=== PATIENT | male | born 1955 | race Caucasian/White ===

== ENCOUNTER → 2017-08-31 | Outpatient (CLI) | payer OTHER ==
[~2017-08-31] MED LIST: ACIPHEX20 MG PO; ASPIRIN81 M1 PO; CRESTOR10 MG PO; CRESTOR40 MG PO; CYCLOBENZAPRINE10 MG PO; PERCOCET 5/31 TABLET PO; PROTONIX40 MG PO; ROBAXIN750 MG PO; Robaxin PO; VIAGRA100 MG PO
== END | disposition home or self-care (01) ==
LOC: CDC 14:33
DX: Z01.810 Encounter for preprocedural cardiovascular examination (principal); Z12.11 Encounter for screening for malignant neoplasm of colon
CPT/HCPCS: 93000

== ENCOUNTER → 2017-09-15 | Outpatient (CLI) | payer OTHER ==
[~2017-09-15] VITALS: Ht 180.3 cm; Wt 120.2 kg
[~2017-09-15] MED LIST changes: +ATORVASTATIN CA20 MG PO; +NAPROSYN500 MG PO; +OXYCODONE HCL15 MG PO; +VITAMIN D2000 UNIT PO
== END | disposition home or self-care (01) ==
LOC: AMB 09:15
DX: Z12.11 Encounter for screening for malignant neoplasm of colon (principal); D12.2 Benign neoplasm of ascending colon; K57.30 Diverticulosis of large intestine without perforation or abscess without bleeding; K21.9 Gastro-esophageal reflux disease without esophagitis; Z80.0 Family history of malignant neoplasm of digestive organs; Z86.010 Personal history of colon polyps; E66.9 Obesity, unspecified; I10 Essential (primary) hypertension; E78.5 Hyperlipidemia, unspecified; G47.33 Obstructive sleep apnea (adult) (pediatric); Z82.49 Family history of ischemic heart disease and other diseases of the circulatory system; F17.200 Nicotine dependence, unspecified, uncomplicated
CPT/HCPCS: 88305